=== PATIENT | male | born 1975 | race Asian ===

== ENCOUNTER 2017-09-03 00:43 | Emergency (ER) | payer OTHER ==
[~2017-09-03] VITALS: Ht 180.3 cm; Wt 98.4 kg
[2017-09-03 00:49] VITALS: BP_SYST 169
[2017-09-03] MEDS ORDERED: INSU100V9 SUBCUT (01:04)
[2017-09-03] MEDS ORDERED: HYDR100T25 PO (01:05)
[2017-09-03] MEDS ORDERED: AMLO5TAB4 PO (01:05)
[2017-09-03] MEDS ORDERED: OXYCODONE/ACETAMINOPHEN *10*mg/325 mg TABLET PO ONE (02:00)
[2017-09-03 02:28] VITALS: BP_SYST 154
== END 2017-09-03 02:28 | disposition home or self-care (01) ==
LOC: SED 00:43
DX: S42.291A Other displaced fracture of upper end of right humerus, initial encounter for closed fracture (principal); E11.9 Type 2 diabetes mellitus without complications; I10 Essential (primary) hypertension; Z79.4 Long term (current) use of insulin; W01.0XXA Fall on same level from slipping, tripping and stumbling without subsequent striking against object, initial encounter; Y93.89 Activity, other specified; Y92.488 Other paved roadways as the place of occurrence of the external cause; Y99.8 Other external cause status
CPT/HCPCS: 73030; 99284